=== PATIENT | female | born 1970 | race Caucasian/White ===

== ENCOUNTER 2017-03-14 11:46 | Emergency (ER) | payer MEDICAID, SELFPAY | END 2017-03-14 13:02 | disposition home or self-care (01) | PROVIDERS: Emergency Provider Nurse Practitioner; Visit Provider Nurse Practitioner | DX: J10.1 Influenza due to other identified influenza virus with other respiratory manifestations (principal); Z72.0 Tobacco use; Z88.6 Allergy status to analgesic agent | CPT/HCPCS: 87804; 99201 ==

== ENCOUNTER 2020-04-14 09:27 | Emergency (ER) | payer MEDICAID, SELFPAY ==
[2020-04-14 09:30] VITALS: BP 149/88; PULSE 93; RESP 14; TEMP 36.2; O2SAT 97; BMI 33.4
--- NOTE | 2020-04-14 10:01 | HMH.EDUTC ---
[facility] [place] Clinical Impression: Viral syndrome, Exposure to COVID-19 virus Disposition: Home, Self-Care Condition on Discharge: Good Instructions: Preventing the Spread of Coronavirus Discharge Instructions Additional Instructions: Drink plenty of fluids. Take tylenol for pain or fever. Return if you begin to have difficulty breathing. Follow up with your regular doctor. GO TO THE ER FOR ANY WORSENING SYMPTOMS Prescriptions: Ondansetron [Zofran 4mg ODT] 4 mg PO Q8HP PRN #9 tab.rapdis PRN Reason: Nausea Transmission Status: Received by [facility] Azithromycin [Z-Freder[place] 250mg Tab*] 250 mg PO UD DOSE PK #6 tab Transmission Status: Received by [facility] Referrals: PCP,No [Primary Care Provider] - Forms: Work/School Release Time of Disposition: 10:03 Medical Decision Making - Medical Records Medical records reviewed: No: I reviewed the patient's medical records. - Zeus Inquiry Pt receiving controlled substance: No Vital Signs: 04/14/20 09:30 04/14/20 10:02 Temperature 97.1 F L 97.1 F L Temperature Source Oral Pulse Rate 93 H Pulse Rate [Left Brachial] 93 H Respiratory Rate 14 14 Blood Pressure 149/88 H Blood Pressure [Left Arm] 149/88 H Blood Pressure Mean [Left Arm] 108 Blood Pressure Source [Left Arm] Automatic Cuff Blood Pressure Position [Left Arm] Sitting 02 Sat by Pulse Oximetry 97 Oxygen Delivery Method Room Air Orders (Tests/Meds): ORDERS Category Date Time Status Covid-19 Nasal PCR Sendout P&C Routine Lab 04/14/20 09:35 Received [facility] [place] - General Stated complaint: covid test, exposure Time Seen by Provider: 04/14/20 10:01 Mode of Arrival: Ambulatory Source of Information: Patient Limitations: No Limitations Description of Symptoms (Recalled from Triage Doc. by RN): COVID TEST D/T EXPOSURE. C/O COUGH AND LOSS OF TASTE HEENT Symptoms (Recalled from RN notes): No Resp Symptoms (Recalled from RN notes): No Skin Symptoms (Recalled from RN notes): No MS Symptoms (Recalled from RN notes): No Functional Status (Recalled from RN notes): WNL - History of Present Illness Provider Complaint: She was sent here from work ([employer]) to be tested for covid. She states that since yesterday she has been having gi upset, cough, and sinus drainage. - Related Data Previous Rx's Medication Instructions Recorded Azithromycin [Z-[place] 250mg Tab*] 250 mg PO UD DOSE PK #6 tab 04/14/20 Ondansetron [Zofran 4mg ODT] 4 mg PO Q8HP PRN #9 tab.rapdis 04/14/20 Allergies Allergy/AdvReac Type Severity Reaction Status Date / Time morphine Allergy Unknown Verified 04/14/20 09:59 - Worker's Comp Is this a Worker's Comp case?: No [facility] History - Hepatitis A Screen Drug use history?: No High risk sexual behaviors?: No History of sexually transmitted infection?: No Currently employed?: No Childcare worker?: No Do you have indoor plumbing?: Yes Do you have electricity?: Yes Attestation statement:: This patient has been screened for Hepatitis A risk factors. I have reviewed the patient's past medical history: Yes - Social History Alcohol Intake: never Occupational Status: other ROS Obtained: Yes All systems reviewed & no additional complaints - Constitutional Constitutional: Reports system reviewed and no additional complaints, except as docu - Eyes Eyes: Reports system reviewed and no additional complaints, except as docu - ENT Ears, Nose, Mouth, and Throat: Reports system reviewed and no additional complaints, except as docu - Cardiovascular Cardiovascular: Reports system reviewed and no additional complaints, except as docu - Respiratory Respiratory: Reports system reviewed and no additional complaints, except as docu - Gastrointestinal Gastrointestingal: Reports: system reviewed and no additional complaints, except as docu, nausea Physical Exam - General General appearance: alert, in no apparent dis
[2020-04-14 10:02] VITALS: BP 149/88; PULSE 93; RESP 14; TEMP 36.2; O2SAT 97
[2020-04-15 11:13] LABS: Covid-19 Nasal PCR Sendout P&C NEGATIVE
== END 2020-04-14 10:16 | disposition home or self-care (01) ==
PROVIDERS: Emergency Provider Nurse Practitioner Family
DX: Z20.822 Contact with and (suspected) exposure to COVID-19 (principal); B34.9 Viral infection, unspecified
CPT/HCPCS: 99202; G0463; U0004

== ENCOUNTER 2021-06-13 12:09 | Emergency (ER) | payer OTHER, SELFPAY ==
[2021-06-13 14:03] VITALS: BP 134/80; PULSE 86; RESP 17; TEMP 37.1; O2SAT 99; BMI 31.3
[2021-06-13 14:14] LABS: UTC Strep Screen (Rapid) Negative (Negative)
--- NOTE | 2021-06-13 14:29 | HMH.EDUTC ---
[facility] [place]position Clinical Impression: Viral syndrome Disposition: Home, Self-Care Condition on Discharge: Good Instructions: DI for Fever (Symptom) -- Adult, DI for Nasal Congestion Additional Instructions: *Monitor Temp, Over the counter Motrin or Tylenol as directed/as needed Tylenol every 4 hours and Motrin every 6 hours (as long as your family doctor has told you that you can take it) for fever or pain. and straight to ER if unable to lower temp less than 101.0 after medication given *Warm salt water gargles may help to soothe the throat *Throat Lozenges *Warm fluids like tea with honey may help to soothe the throat *Sleep elevated *Humidifier/Vaporizer Take your cough medication as prescribed Your throat swab was sent for culture. Those results are typically sent to your primary care. Be sure to follow up in 2-3 days with your family doctor/primary care physician if no improvement so they can review those result and treat if necessary. If you don?t have a primary care doctor, I recommend you get one but in the mean time, you will have to return to a walk in clinic Follow up IMMEDIATELY for new or worsening symptoms or no Noticeable improvement over the next 48-72 hours. 911 for difficulty breathing or swallowing Prescriptions: Benzonatate [Benzonatate 100mg cap] 100 mg PO Q8HP PRN #15 cap PRN Reason: Cough Transmission Status: Pending to [facility] Pseudoephedrine HCl [Sudafed 12 Hour 120mg Tab] 1 tab PO BID PRN #10 tab PRN Reason: Nasal Congestion Transmission Status: Pending to [facility] Referrals: Provider,Referral, [Primary Care Provider] - As needed Forms: Work/School Release Time of Disposition: 14:49 Medical Decision Making - Zeus Inquiry Pt receiving controlled substance: No Zeus was queried for this patient: No Vital Signs: 06/13/21 14:03 Temperature 98.8 F Temperature Source Oral Pulse Rate [Left] 86 Respiratory Rate 17 Blood Pressure [Right Arm] 134/80 Blood Pressure Mean [Right Arm] 98 02 Sat by Pulse Oximetry 99 - Lab Data Lab results reviewed: Yes: I reviewed the patient's lab results. Lab Results 06/13/21 14:04: Strep Scn Rapid Clinic Negative Orders (Tests/Meds): ORDERS Category Date Time Status Strep Screen Confirmation Stat Micro 06/13/21 14:04 Received [facility] [place] HPI - General Stated complaint: congestion, fever, cough, sore throat Time Seen by Provider: 06/13/21 14:29 Mode of Arrival: Ambulatory Source of Information: Patient Limitations: No Limitations Description of Symptoms (Recalled from Triage Doc. by RN): pt c/o sinus drainage, fever, cough and scratchy throat. pt had a negative at home covid test. ongoing since last week. HEENT Symptoms (Recalled from RN notes): Yes Resp Symptoms (Recalled from RN notes): Yes Skin Symptoms (Recalled from RN notes): No MS Symptoms (Recalled from RN notes): No Functional Status (Recalled from RN notes): wnl - History of Present Illness Provider Complaint: Patient states that she has been having sore scratchy throat, nasal congestion, fever, chills, headache States that she took an at home COVID test and it was negative but she was worried that she may have strep throat or the flu so she came in to get checked out - Related Data Previous Rx's Medication Instructions Recorded Azithromycin [Z-[place] 250mg Tab*] 250 mg PO UD DOSE PK #6 tab 04/14/20 Ondansetron [Zofran 4mg ODT] 4 mg PO Q8HP PRN #9 tab.rapdis 04/14/20 Benzonatate [Benzonatate 100mg 100 mg PO Q8HP PRN #15 cap 06/13/21 cap] Pseudoephedrine HCl [Sudafed 12 1 tab PO BID PRN #10 tab 06/13/21 Hour 120mg Tab] Allergies Allergy/AdvReac Type Severity Reaction Status Date / Time morphine Allergy Unknown Verified 04/14/20 09:59 - Worker's Comp Is this a Worker's Comp case?: No [facility] History - Hepatitis A Screen Drug use history?: No High risk sexual behaviors?: No History of sexually transmitted inf
[2021-06-13 14:48] LABS: UTC Influenza A Antigen Negative (Negative); UTC Influenza B Antigen Negative (Negative)
[2021-06-13 14:57] VITALS: BP 134/80; PULSE 86; RESP 17; TEMP 37.1
== END 2021-06-13 14:58 | disposition home or self-care (01) ==
PROVIDERS: Emergency Provider Nurse Practitioner
DX: B34.9 Viral infection, unspecified (principal); J02.9 Acute pharyngitis, unspecified
CPT/HCPCS: 87804; 87880; 99212; G0463

== ENCOUNTER 2021-10-17 06:00 | Emergency (ER) | payer OTHER, BC, SELFPAY ==
[2021-10-17 06:01] VITALS: BP 151/91; PULSE 81; RESP 98; TEMP 36.6; O2SAT 97; BMI 31.3
[2021-10-17 06:04] VITALS: BMI 31.3
--- NOTE | 2021-10-17 06:05 | XR_ITS ---
PROCEDURE INFORMATION: Exam: XR Chest Exam date and time: 10/17/2021 6:25 AM Age: 51 years old Clinical indication: Injury or trauma; Other: Head injury; Blunt trauma (contusions or hematomas); Additional info: Fall TECHNIQUE: Imaging protocol: Radiologic exam of the chest. Views: 4 or more views. COMPARISON: CT CERVICAL SPINE WO CON 10/17/2021 6:21 AM FINDINGS: Lungs: No focal airspace disease. Pleural spaces: Unremarkable. No pleural effusion. No pneumothorax. Heart/Mediastinum: Cardiomediastinal silhouette is within normal limits. Bones/joints: Unremarkable. IMPRESSION: No acute cardiopulmonary abnormality.
--- NOTE | 2021-10-17 06:05 | CT_ITS ---
PROCEDURE INFORMATION: Exam: CT Cervical Spine Without Contrast Exam date and time: 10/17/2021 6:21 AM Age: 51 years old Clinical indication: Injury or trauma; Work related; Blunt trauma; Additional info: Dizzy, PÉREZ, light sensit S/P closed head trauma TECHNIQUE: Imaging protocol: Computed tomography of the cervical spine without contrast. Radiation optimization: All CT scans at this facility use at least one of these dose optimization techniques: automated exposure control; mA and/or kV adjustment per patient size (includes targeted exams where dose is matched to clinical indication); or iterative reconstruction. COMPARISON: [facility] MRI-BRAIN W/WO 04/19/2015 11:04 AM FINDINGS: Bones/joints: No acute fracture. Normal alignment. Discs/Spinal canal/Neural foramina: No significant disc protrusion. No severe spinal canal stenosis. No significant neural foraminal narrowing. Lungs: Lung apices are normal. Soft tissues: Unremarkable. IMPRESSION: No acute findings.
--- NOTE | 2021-10-17 06:05 | CT_ITS ---
PROCEDURE INFORMATION: Exam: CT Head Without Contrast Exam date and time: 10/17/2021 6:23 AM Age: 51 years old Clinical indication: Injury or trauma; Work related; Additional info: Dizzy, PÉREZ, light sensit S/P closed head trauma TECHNIQUE: Imaging protocol: Computed tomography of the head without contrast. Radiation optimization: All CT scans at this facility use at least one of these dose optimization techniques: automated exposure control; mA and/or kV adjustment per patient size (includes targeted exams where dose is matched to clinical indication); or iterative reconstruction. COMPARISON: [facility] MRI-BRAIN W/WO 04/19/2015 11:04 AM FINDINGS: Brain: Normal. No hemorrhage. Unremarkable white matter. No mass effect. Cerebral ventricles: No ventriculomegaly. Paranasal sinuses: Visualized sinuses are unremarkable. No fluid levels. Mastoid air cells: Visualized mastoid air cells are well aerated. Bones/joints: Unremarkable. No acute fracture. Soft tissues: Unremarkable. IMPRESSION: No acute intracranial abnormality.
--- NOTE | 2021-10-17 06:07 | XR_ITS ---
PROCEDURE INFORMATION: Exam: XR Pelvis Exam date and time: 10/17/2021 6:24 AM Age: 51 years old Clinical indication: Injury or trauma; Blunt trauma (contusions or hematomas); Does not apply; Pelvic region; Patient HX: Head injury at work; Additional info: Fall TECHNIQUE: Imaging protocol: Radiologic exam of the pelvis. Views: 1 or 2 view. COMPARISON: No relevant prior studies available. FINDINGS: Bones/joints: No acute fracture or malalignment. Joint spaces are maintained. Soft tissues: Unremarkable. IMPRESSION: No acute fracture or malalignment.
[2021-10-17 06:54] LABS: Basophils % 0.7 % (0.1-2.0); Eosinophils # 0.3 K/mm3 (0.0-0.4); Eosinophils % 5.2 % (0.1-12.0); Hematocrit 39.7 % (37.0-47.0); Hemoglobin 13.5 g/dL (12.2-16.2); Lymphocytes # 2.1 K/mm3 (0.7-4.5); Lymphocytes % 35.3 % (10-50); Mean Corpuscular Hemoglobin 29.1 pg (27.0-31.2); Mean Corpuscular Volume 85.7 fl (81-99); Mean Platelet Volume 7.6 fl (7.4-10.4); Monocytes # 0.3 K/mm3 (0.1-1.0); Neutrophils # 3.3 K/mm3 (1.8-7.8); Neutrophils % 53.7 % (37.0-80.0); Platelet Count 270 K/mm3 (142-424); Red Blood Count 4.63 M/mm3 (4.20-5.40); White Blood Count 6.1 K/mm3 (4.8-10.8)
[2021-10-17 06:59] LABS: Alanine Aminotransferase 17 U/L (12-78); Albumin Level 4.1 g/dl (3.5-5.0); Albumin/Globulin Ratio 1.4 (1.1-1.8); Alkaline Phosphatase 52 U/L (38-126); Anion Gap 11.7 mEq/L (5-15); Aspartate Amino Transferase 26 U/L (14-36); Bilirubin,Total 0.3 mg/dl (0.2-1.3); Blood Urea Nitrogen 11 mg/dl (7-17); Calcium 9.1 mg/dl (8.4-10.2); Carbon Dioxide 25 mmol/L (22.0-30.0); Chloride 105 mmol/L (98-107); Creatinine Clearance Estimated 88 mL/min (50-200); Estimated Glomerular Filt Rate 75 ml/min (>60); GFR (African American) 91 ML/MIN (>60); Glucose 112 mg/dl (74-100); Potassium 3.7 mmoL/L (3.5-5.1); Sodium 138 mmol/L (136-145); Total Protein,Serum 7.1 g/dl (6.3-8.2)
[2021-10-17 07:01] VITALS: BP 134/83; PULSE 64; O2SAT 98
[2021-10-17 07:16] LABS: Procalcitonin 0.036 ng/mL (0.0-2.0)
--- NOTE | 2021-10-17 07:22 | PC.NURSE ---
DR. GONZALEZ AT BEDSIDE
[2021-10-17 07:31] VITALS: BP 139/86; PULSE 69; O2SAT 100
--- NOTE | 2021-10-17 07:34 | HMH.EDHA ---
ED Disposition Clinical Impression: Concussion without loss of consciousness Qualifiers: Encounter type: initial encounter Qualified Code(s): S06.0X0A - Concussion without loss of consciousness, initial encounter Closed head injury Qualifiers: Encounter type: initial encounter Qualified Code(s): S09.90XA - Unspecified injury of head, initial encounter Cervical strain, acute Qualifiers: Encounter type: initial encounter Qualified Code(s): S16.1XXA - Strain of muscle, fascia and tendon at neck level, initial encounter Disposition: Home, Self-Care Condition on Discharge: Good Instructions: DI for Concussion, DI for Closed Head Injury Additional Instructions: advil and tyenol and workman comp forms completed Referrals: Provider,Referral, MD [Primary Care Provider] - - Critical Care Critical Care Time: No Attestation: On 10/17/21, the high probability of a clinically significant, sudden or life threatening deterioration of the following system(s) required my full and direct attention, intervention and personal management. The time I documented below is in addition to time spent performing reported procedures but includes the following listed in this critical care notation. Medical Decision Making - Medical Records Medical records reviewed: Yes: I reviewed the patient's medical records. - Zeus Inquiry Pt receiving controlled substance: No Vital Signs: 10/17/21 06:01 Temperature 97.9 F Temperature Source Oral Pulse Rate [Right] 81 Respiratory Rate 98 H Blood Pressure [Right Arm] 151/91 H Blood Pressure Mean [Right Arm] 111 Blood Pressure Source [Right Arm] Automatic Cuff 02 Sat by Pulse Oximetry 97 Oxygen Delivery Method Room Air - Lab Data Lab results reviewed: Yes: I reviewed the patient's lab results. Lab Results 10/17/21 06:21: WBC 6.1, RBC 4.63, Hgb 13.5, Hct 39.7, MCV 85.7, MCH 29.1, MCHC 34.0, RDW 13.0, Plt Count 270, MPV 7.6, Neut % (Auto) 53.7, Lymph % (Auto) 35.3, [place] % (Auto) 5.0, Eos % (Auto) 5.2, Baso % (Auto) 0.7, Neut # (Auto) 3.3, Lymph # (Auto) 2.1, [place] # (Auto) 0.3, Eos # (Auto) 0.3, Baso # (Auto) 0.0 10/17/21 06:21: Sodium 138, Potassium 3.7, Chloride 105, Carbon Dioxide 25, Anion Gap 11.7, BUN 11, Creatinine 0.80, Estimated Creat Clear 88, Estimated GFR 75, Est GFR ( Amer) 91, Glucose 112 H, Calcium 9.1, Total Bilirubin 0.3, AST 26, ALT 17, Alkaline Phosphatase 52, C-Reactive Protein 5.0 H, Total Protein 7.1, Albumin 4.1, Globulin 3.0, Albumin/Globulin Ratio 1.4, Procalcitonin 0.036 Result diagrams: 10/17/21 06:21 10/17/21 06:21 Orders (Tests/Meds): ED MEDICATIONS Generic Name Dose Route Start Last Admin Trade Name Freq PRN Reason Stop Dose Admin Sodium Chloride 1,000 mls @ 999 mls/hr 10/17/21 06:15 10/17/21 06:38 Sod Chlor 0.9% 1000ml Bag IV 10/17/21 07:15 999 mls/hr .[id number] VANIA Administration Discontinued Medications Generic Name Dose Route Start Last Admin Trade Name Freq PRN Reason Stop Dose Admin Ondansetron HCl 4 mg 10/17/21 06:09 10/17/21 06:38 Ondansetron 4mg/2ml Vial IV 10/17/21 06:10 4 mg ONCE ONE Administration ORDERS Category Date Time Status XR chest AP Stat Exams 10/17/21 06:05 Taken XR pelvis 1-2V Stat Exams 10/17/21 06:07 Taken Complete Blood Count Auto Diff Stat Lab 10/17/21 06:21 Results Erythrocyte Sedimentation Rate Stat Lab 10/17/21 06:21 Results - Radiology Data #1 Image(s): Chest, Pelvis Image Reviewed: Yes I reviewed the patient's radiology image Preliminary Findings: No Fracture Seen - CT Data CT Scan: Head, C-Spine Time Received: 07:[address] Reviewed: Yes: I have viewed the radiologist's interpretation Preliminary Findings: No Fracture Seen Medical Decision Narrative: acute head trauma this am at work with acute concussion syndrome - stable exam and xrays Headache HPI - General Chief Complaint: Head Injury Stated Complaint: work injury Time Seen by Provider:
--- NOTE | 2021-10-17 07:35 | PC.NURSE ---
pt c-collar removed per MD, pt sitting on the side of the bed, warm blanket given for comfort.
[2021-10-17 07:37] LABS: Erythrocyte Sedimentation Rate 15 mm/hr (0-30)
[2021-10-17 08:00] VITALS: BP 151/91; PULSE 65; O2SAT 99
[2021-10-17 08:14] VITALS: BP 151/91; PULSE 65; RESP 16; TEMP 36.6; O2SAT 99
== END 2021-10-17 08:15 | disposition home or self-care (01) ==
PROVIDERS: Emergency Provider Emergency Medicine
DX: S06.0X0A Concussion without loss of consciousness, initial encounter (principal); G44.319 Acute post-traumatic headache, not intractable; S16.1XXA Strain of muscle, fascia and tendon at neck level, initial encounter; R42 Dizziness and giddiness; R41.0 Disorientation, unspecified; R11.0 Nausea; Z88.5 Allergy status to narcotic agent
CPT/HCPCS: 70450; 71045; 72125; 72170; 80053; 84145; 85025; 85651; 86140; 96374; 99285; J2405